=== PATIENT | male | born 1955 | race Caucasian/White ===

== ENCOUNTER 2017-02-06 12:26 | Emergency (ER) | payer BC ==
[~2017-02-06] VITALS: Ht 170.2 cm; Wt 83.3 kg
[~2017-02-06 12:26] MED LIST: 1-ME1LIQ PO; ERYT1O LEFT EYE; LISI40TA PO
[2017-02-06 12:34] VITALS: BP 140/78; PULSE 90; RESP 15; TEMP 98.1; O2SAT 95
[2017-02-06] MEDS ORDERED: LISI40TA PO (12:48)
[2017-02-06] MEDS ORDERED: AMLO10TA2 PO (12:48)
--- NOTE | 2017-02-06 12:50 | PD ---
HPI Chief Complaint: Skin Problem Time Seen by Provider: 12:46 Travel History International Travel<30 days: No Contact w/Intl Traveler<30days: No Traveled to known affect area: No History of Present Illness HPI Patient comes in complaining of pruritic rash on his right forearm that began 3 or 4 days ago. Patient states started off as a small bump has since spread over the volar surface of his right forearm. He states he's been trying to keep it clean with soap and water as well as scratching, but denies doing anything else for this. Denies any known fevers, nausea, vomiting, no new allergen exposure, or previous episodes like this. Denies any pain with this, but feels his skin is stretching. PFSH Past Medical History Cardiovascular Problems: No Diabetes: No Hypertension: Yes Respiratory: No ?: Not Past Surgical History Eye Surgery: Yes (CATARACT) Oral Surgery: Yes (DENTURES ) Social History Alcohol Use: No Tobacco Use: No Substance Use: No Allergies-Medications (Allergen,Severity, Reaction): Coded Allergies: Bactroban (Verified Allergy, Mild, 02/06/17) Neosporin (Verified Allergy, Mild, 02/06/17) Penicillin (Verified Allergy, Mild, 02/06/17) Reported Meds & Prescriptions Reported Meds & Active Scripts Active Bactrim DS (Sulfamethoxazole-Trimethoprim) 800-160 Mg Tab 1 Tab PO BID Pepcid (Famotidine) 20 Mg Tab 20 Mg PO BID 10 Days Medrol Dosepak (Methylprednisolone) 4 Mg Dspk 4 Mg PO DIRECTED Per Pharmacist direction Reported Amlodipine (Amlodipine Besylate) 10 Mg Tab 10 Mg PO DAILY Lisinopril 40 Mg Tab 40 Mg PO DAILY Review of Systems Except as stated in HPI: all other systems reviewed are Neg Physical Exam Narrative GENERAL: Well-developed, overly nourished, in no acute distress, and non-ill appearing. SKIN: Blanching erythematous rash volar surface of right forearm. It is mildly febrile, nontender, and without crepitus. HEAD: Atraumatic. Normocephalic. EYES: Pupils equal and round. EOMI. No scleral icterus. No injection or drainage. ENT: No nasal bleeding or discharge. Mucous membranes pink and moist. NECK: Trachea midline. Supple. No nuclear rigidity. CARDIOVASCULAR: Radial pulses 2+, intact, and equal bilaterally. RESPIRATORY: No accessory muscle use. No respiratory distress. MUSCULOSKELETAL: No obvious deformities. No clubbing. No cyanosis. No edema. Full range of motion. NEUROLOGICAL: Awake and alert. No obvious cranial nerve deficits. Motor grossly within normal limits. Normal speech. PSYCHIATRIC: Appropriate mood and affect; insight and judgment normal. Data Data Last Documented VS Vital Signs Date Time Temp Pulse Resp B/P Pulse Ox O2 Delivery O2 Flow Rate FiO2 02/06/17 12:34 98.1 90 15 140/78 95 MDM Medical Decision Making Medical Screen Exam Complete: Yes Emergency Medical Condition: Yes Differential Diagnosis Abscess, cellulitis, shingles, allergic reaction, other Narrative Course The patient presented with nonspecific rash/dermatitis. There were no blisters or bullae, target lesions, purpura or petechia, nor vesiculobullous or scarlatiniform lesions. The patient looks great and was non-ill appearing. There was no evidence to suggest scabies, cellulitis, folliculitis or abscess, Staph. Scalded Skin Syndrome, Toxic Shock, Toxic Epidermal necrolysis, Kawasaki s, Measles, Rubella, cutaneous T cell lymphoma, Erythema Multiforme (minor or major). Plan of care was discussed with the patient and the patient is to follow up with their physician. The patient agreed with plan. Patient in no obvious distress upon re-evaluation. Patient was asked if they wanted to speak to my attending, which the patient did not wish to do at this time. Any questions/concerns in reference to patient diagnosis/condition discussed and clarified prior to patient's discharge. Reinforced sheer importance of close follow up with patient's primary physician or primary care clinic. Instructed patient to return to ED immediately, if symptoms return/ worsen. Pt showed understanding of above instructions. Further instructions and recommendations were detailed in discharge paperwork. Pt ambulated without difficulty out of ED at discharge. Diagnosis Primary Impression: Rash and nonspecific skin eruption Patient Instructions: Acute Rash (ED), General Instructions Additional Instructions: Follow-up with your primary care physician in 2-3 days for reevaluation. Take all medication as prescribed. Use [id number] Benadryl or Claritin or Zyrtec as needed for symptomatic relief. Follow instructions on the packaging. Return to the emergency department if symptoms get worse. Med/Other Pt SpecificInfo: Prescription(s) given Scripts Sulfamethoxazole-Trimethoprim (Bactrim DS)800-160 Mg Tab1 Tab PO BID #20 TAB Ref 0 Prov:Saira Page DO 02/06/17 Famotidine (Pepcid)20 Mg Tab20 Mg PO BID 10 Days Ref 0 Prov:Saira Page DO 02/06/17 Methylprednisolone Dosepak (Medrol Dosepak)4 Mg Dspk4 Mg PO DIRECTED #1 DSPK Ref 0 Per Pharmacist direction Prov:Saira Page DO 02/06/17 Disposition: 01 DISCHARGE HOME Condition: Stable Fransico Kee Feb 06, 2017 12:50
[2017-02-06] MEDS ORDERED: FAMO1TAB37 PO (12:52)
[2017-02-06] MEDS ORDERED: MEDR4PAK PO (12:52)
[2017-02-06] MEDS ORDERED: BACT800T5 PO (12:52)
== END 2017-02-06 13:01 | disposition home or self-care (01) ==
LOC: PHEFT 12:26
DX: R21 Rash and other nonspecific skin eruption (principal); I10 Essential (primary) hypertension
CPT/HCPCS: 99282